=== PATIENT | male | born 1955 | race African-American/Black ===

== ENCOUNTER 2019-08-04 16:11 | Inpatient (IN) ==
[2019-08-04 17:17] LABS: Eosinophils % 0.3 % (0.00-10.9); Hematocrit 37.6 VOL% (42.0-52.0); Hemoglobin 13.2 GM/DL (14.0-18.0); Immature Granulocytes % 0.5 %; Immature Granulocytes Absolute 0.02 #; Lymphocytes # 0.5 10*3/uL (1.4-4.0); Lymphocytes % 11.6 % (21.2-54.2); Mean Corpuscular HGB Conc 35.1 GM/DL (32-36); Mean Corpuscular Volume 93.8 FL (87-102); Mean Platelet Volume 10.8 FL (9.6-12.0); Monocytes % 11.6 % (1.7-12.7); Platelet Count 73 T/CUMM (130-400); Red Blood Count 4.01 MC/CUMM (3.8-5.5); Red Cell Distribution Width 13.1 % (9.3-17.3); White Blood Count 3.9 T/CUMM (4-12)
[2019-08-04 17:37] LABS: Alanine Aminotransferase 150 U/L (16-61); Albumin 3.8 G/DL (3.4-5.0); Alkaline Phosphatase 77 U/L (45-117); Aspartate Amino Transferase 233 U/L (0-37); Blood Urea Nitrogen 7 MG/DL (7-18); Calcium 9.2 MG/DL (8.5-10.1); Estimated Glom Filtration Rate 79 ML/MIN; Glucose 133 MG/DL (74-106); Osmolality,Calculated 261.7 MOS/KG (273-304); Total Protein 9.2 G/DL (6.4-8.3)
[2019-08-04 17:58] LABS: Platelet Estimate Decreased; Polychromasia Slight
[2019-08-04] MEDS ORDERED: levETIRAcetam 500 MG/5 ML VIAL IV ONE (18:54)
[2019-08-04] MEDS ORDERED: ACETAMINOPHEN 325 MG TABLET PO PRN (19:32)
[2019-08-04] MEDS ORDERED: ONDANSETRON 4 MG/2 ML VIAL IV PRN (19:32)
[2019-08-04] MEDS ORDERED: DOCUSATE SODIUM 100 MG CAPSULE PO PRN (19:32)
[2019-08-04 20:50] LABS: Apearance,Urine CLEAR (Clear); Bacteria,Urine Occasional /HPF (Few); Bilirubin,Urine Negative (Negative); Blood, Urine Moderate mg/dL (Negative); Glucose,Urine (UA) Negative (Negative); Hyaline Casts,Urine 5 /LPF (0-3); Ketones,Urine 5 mg/dL (Negative); Mucus,Urine Occasional /LPF (Occasional); Nitrite,Urine Negative (Negative); Protein,Urine 30 MG/DL; RBC,Urine 9 /HPF (0-4); Urine Color Yellow (Yellow); Urine Specific Gravity 1.012 (1.001-1.035); Urine Urobilinogen < 2.0 EU/DL (0.2-1.0); WBC,Urine 1 /HPF (0-6)
[2019-08-04 20:54] LABS: Barbiturates Screen,Urine Negative (Negative); Benzodiazepines Screen,Urine Negative (Negative); Cannabinoid Screen,Urine Negative (Negative); Opiate Screen,Urine Negative (Negative); Phencyclidine Screen,Urine Negative (Negative)
[2019-08-04] MEDS ORDERED: ENOXAPARIN 40 MG/0.4 ML SYRINGE SUBCUT SCH (21:00)
[2019-08-04] MEDS ORDERED: POTASSIUM CHLORIDE 20 MEQ TABLET PO ONE (21:00)
[2019-08-04] MEDS: THIAMINE INJ 100 MG, FOLIC ACID INJ 1 MG, MULTIVITAMIN INJ 10 ML in SODIUM CHLORIDE 0.9... IV SCH (22:08)
[2019-08-05 05:17] LABS: Basophils % 0.9 % (0.0-0.8); Eosinophils % 0.7 % (0.00-10.9); Hematocrit 38.5 VOL% (42.0-52.0); Hemoglobin 13.7 GM/DL (14.0-18.0); Immature Granulocytes % 0.5 %; Immature Granulocytes Absolute 0.02 #; Lymphocytes # 0.8 10*3/uL (1.4-4.0); Lymphocytes % 18.1 % (21.2-54.2); Mean Corpuscular HGB Conc 35.6 GM/DL (32-36); Mean Platelet Volume 10.5 FL (9.6-12.0); Monocytes % 15.5 % (1.7-12.7); Neutrophils % 64.3 % (38.7-73.9); Platelet Count 69 T/CUMM (130-400); Red Blood Count 4.14 MC/CUMM (3.8-5.5); Red Cell Distribution Width 13.3 % (9.3-17.3); White Blood Count 4.3 T/CUMM (4-12)
[2019-08-05 05:42] LABS: Albumin 3.8 G/DL (3.4-5.0); Bilirubin,Total 1.4 MG/DL (0.2-1.0); Osmolality,Calculated 264.2 MOS/KG (273-304); Risk Ratio 2.06; Thyroid Stimulating Hormone 1.18 uIU/ml (0.358-3.74); Total Protein 9.2 G/DL (6.4-8.3); VLDL CHOLESTEROL 18.6 MG/DL
[2019-08-05 06:11] LABS: Anisocytosis Slight; Band Neutrophils 2 % (0-10); Lymphocytes 19 % (20-55); Macrocytosis Slight; Segmented Neutrophils 66 % (50-85); Target Cells 1+; Total Cells Counted 100
[2019-08-05 06:12] LABS: Platelet Estimate Decreased
[2019-08-05] MEDS: LACTULOSE 20 GM/30 ML UDCUP PO SCH (10:10)
[2019-08-05] MEDS: PANTOPRAZOLE 40 MG TABLET PO SCH (10:11)
[2019-08-05] MEDS: SODIUM CHLORIDE 0.9% 1,000 ML IV SCH (10:49)
[2019-08-05] MEDS: levETIRAcetam 500 MG TABLET PO SCH (20:44)
[2019-08-05] MEDS: THIAMINE INJ 100 MG, FOLIC ACID INJ 1 MG, MULTIVITAMIN INJ 10 ML in SODIUM CHLORIDE 0.9... IV SCH (20:44)
[2019-08-06] MEDS ORDERED: LORazepam 2 MG/1 ML VIAL IV ONE (04:00)
[2019-08-06 08:02] VITALS: BP 132/83
[2019-08-06] MEDS: SODIUM CHLORIDE 0.9% 1,000 ML IV SCH (08:06)
[2019-08-06] MEDS: levETIRAcetam 500 MG TABLET PO SCH (08:08)
[2019-08-06] MEDS: PANTOPRAZOLE 40 MG TABLET PO SCH (08:08)
[2019-08-06] MEDS: LACTULOSE 20 GM/30 ML UDCUP PO SCH (08:08)
[2019-08-06] MEDS ORDERED: METOPROLOL SUCCINATE XL 50 MG TABLET PO SCH (09:00)
== END 2019-08-06 10:00 | disposition home or self-care (01) | DRG 101 ==
LOC: EDUNIT# → EDBD → N.ED 16:11 → SUATTDRO 19:32 → N.EDINP 19:32 → N.4E 20:30
PROVIDERS: ADMIT Internal Medicine; ATTEND Emergency Medicine

== ENCOUNTER 2020-03-13 19:47 | Inpatient (IN) ==
[2020-03-13] MEDS ORDERED: SODIUM CHLORIDE 0.9% 1,000 ML IV STA (21:16)
[2020-03-13] MEDS ORDERED: THIAMINE 200 MG/2 ML VIAL IM STA (21:16)
[2020-03-13 21:22] LABS: Basophils # 0.1 10*3/uL (0.0-0.2); Basophils % 0.6 % (0.0-0.8); Eosinophils # 0.2 10*3/uL (0.0-0.87); Eosinophils % 1.9 % (0.00-10.9); Hematocrit 24.2 VOL% (42.0-52.0); Immature Granulocytes % 0.5 %; Immature Granulocytes Absolute 0.06 #; Lymphocytes # 1.4 10*3/uL (1.4-4.0); Lymphocytes % 12.8 % (21.2-54.2); Mean Corpuscular HGB Conc 33.1 GM/DL (32-36); Mean Corpuscular Volume 103.9 FL (87-102); Monocytes % 9.9 % (1.7-12.7); Neutrophils % 74.3 % (38.7-73.9); Platelet Count 197 T/CUMM (130-400); Red Blood Count 2.33 MC/CUMM (3.8-5.5); Red Cell Distribution Width 13.8 % (9.3-17.3); White Blood Count 11.1 T/CUMM (4-12)
[2020-03-13 21:30] LABS: INR 1.2; PT Patient Result 12.4 SECS (9.8-11.9)
[2020-03-13 21:37] LABS: Apearance,Urine CLEAR (Clear); Bilirubin,Urine Negative (Negative); Blood, Urine Negative (Negative); Glucose,Urine (UA) Negative (Negative); Hyaline Casts,Urine 11 /LPF (0-3); Ketones,Urine Negative (Negative); Nitrite,Urine Negative (Negative); Protein,Urine Negative; RBC,Urine 1 /HPF (0-4); Squamous Epithelial Cell,Urine Occasional /HPF (0-10); Urine Color Yellow (Yellow); Urine Urobilinogen < 2.0 EU/DL (0.2-1.0); WBC,Urine <1 /HPF (0-6)
[2020-03-13 21:39] LABS: Alanine Aminotransferase 49 U/L (16-61); Albumin 3.6 G/DL (3.4-5.0); Alkaline Phosphatase 93 U/L (45-117); Aspartate Amino Transferase 251 U/L (0-37); Blood Urea Nitrogen 31 MG/DL (7-18); Calcium 9.5 MG/DL (8.5-10.1); Estimated Glom Filtration Rate 48 ML/MIN; Glucose 105 MG/DL (74-106); Osmolality,Calculated 253.8 MOS/KG (273-304); Total Protein 9.2 G/DL (6.4-8.3); Troponin I < 0.015 NG/ML (0.00-0.045)
[2020-03-13 21:41] LABS: Barbiturates Screen,Urine Negative (Negative); Benzodiazepines Screen,Urine Negative (Negative); Cannabinoid Screen,Urine Negative (Negative); Opiate Screen,Urine Negative (Negative); Phencyclidine Screen,Urine Negative (Negative)
[2020-03-13 21:45] LABS: Free T4 (Free Thyroxine) 1.33 NG/DL (0.76-1.46); Thyroid Stimulating Hormone 1.91 uIU/ml (0.358-3.74)
[2020-03-14] MEDS ORDERED: PROMETHAZINE 25 MG/1 ML VIAL IM PRN (00:10)
[2020-03-14] MEDS ORDERED: ALBUTEROL 2.5 MG/3 ML NEB RESP TX PRN (00:10)
[2020-03-14] MEDS ORDERED: ONDANSETRON 4 MG/2 ML VIAL IV PRN (00:10)
[2020-03-14] MEDS ORDERED: ENOXAPARIN 40 MG/0.4 ML SYRINGE ONE (00:25)
[2020-03-14] MEDS ORDERED: THIAMINE INJ 100 MG, FOLIC ACID INJ 1 MG, MAGNESIUM SULF INJ 2 GM, MULTIVITAMIN INJ 10 ... IV ONE (00:30)
[2020-03-14] MEDS: PANTOPRAZOLE 40 MG VIAL IV SCH ×3 (00:42→20:45)
[2020-03-14] MEDS ORDERED: LORazepam 2 MG/1 ML VIAL ONE (00:55)
[2020-03-14] MEDS: LORazepam 2 MG/1 ML VIAL IV PRN ×2 (01:15→04:30)
[2020-03-14 04:38] LABS: Basophils % 0.5 % (0.0-0.8); Eosinophils # 0.2 10*3/uL (0.0-0.87); Hematocrit 21.1 VOL% (42.0-52.0); Hemoglobin 7.2 GM/DL (14.0-18.0); Immature Granulocytes % 0.6 %; Immature Granulocytes Absolute 0.05 #; Lymphocytes # 1.3 10*3/uL (1.4-4.0); Mean Corpuscular HGB Conc 34.1 GM/DL (32-36); Mean Corpuscular Volume 102.9 FL (87-102); Mean Platelet Volume 10.3 FL (9.6-12.0); Monocytes % 11.3 % (1.7-12.7); Neutrophils % 69.6 % (38.7-73.9); Platelet Count 145 T/CUMM (130-400); Red Blood Count 2.05 MC/CUMM (3.8-5.5); Red Cell Distribution Width 13.7 % (9.3-17.3)
[2020-03-14 04:56] LABS: Calcium 8.8 MG/DL (8.5-10.1); Osmolality,Calculated 258.2 MOS/KG (273-304)
[2020-03-14] MEDS ORDERED: GLUCAGON 1 MG VIAL IM PRN (07:23)
[2020-03-14] MEDS ORDERED: DEXTROSE 10% 250 ML BAG IV PRN (07:23)
[2020-03-14] MEDS ORDERED: chlordiazePOXIDE 25 MG CAPSULE PO ONE ×2 (07:56→08:00)
[2020-03-14] MEDS: ENOXAPARIN 40 MG/0.4 ML SYRINGE SUBCUT SCH (08:16)
[2020-03-14] MEDS ORDERED: SODIUM CHLORIDE 0.9% 1,000 ML IV SCH (08:30)
[2020-03-14 08:44] LABS: Basophils % 0.6 % (0.0-0.8); Eosinophils # 0.2 10*3/uL (0.0-0.87); Eosinophils % 3.3 % (0.00-10.9); Hematocrit 21.6 VOL% (42.0-52.0); Hemoglobin 7.1 GM/DL (14.0-18.0); Immature Granulocytes % 0.3 %; Immature Granulocytes Absolute 0.02 #; Lymphocytes # 1.3 10*3/uL (1.4-4.0); Mean Corpuscular HGB Conc 32.9 GM/DL (32-36); Mean Corpuscular Volume 103.8 FL (87-102); Mean Platelet Volume 9.9 FL (9.6-12.0); Monocytes % 10.6 % (1.7-12.7); Neutrophils % 65.2 % (38.7-73.9); Platelet Count 152 T/CUMM (130-400); Red Blood Count 2.08 MC/CUMM (3.8-5.5); Red Cell Distribution Width 13.7 % (9.3-17.3); White Blood Count 6.7 T/CUMM (4-12)
[2020-03-14] MEDS ORDERED: chlordiazePOXIDE 25 MG CAPSULE PO SCH (09:00)
[2020-03-14] MEDS: POTASSIUM CHLORIDE 20 MEQ TABLET PO PRN (10:10)
[2020-03-14] MEDS ORDERED: LORazepam 2 MG/1 ML VIAL IV PRN (10:45)
[2020-03-14] MEDS ORDERED: SODIUM CHLORIDE 0.9% 1,000 ML IV PRN (11:39)
[2020-03-14] MEDS: DEXTROSE 5% NACL 0.9% 1,000 ML IV SCH (13:13)
[2020-03-14] MEDS: POTASSIUM CHLORIDE RIDER 10 MEQ in PREMIX 1 EACH IV PRN ×2 (13:49→15:19)
[2020-03-14] MEDS: chlordiazePOXIDE 25 MG CAPSULE PO SCH ×2 (15:13→20:45)
[2020-03-14] MEDS: levETIRAcetam 500 MG TABLET PO SCH (20:45)
[2020-03-14 22:37] LABS: Hematocrit 31.4 VOL% (42.0-52.0); Hemoglobin 10.5 GM/DL (14.0-18.0)
[2020-03-15] MEDS: DEXTROSE 5% NACL 0.9% 1,000 ML IV SCH ×3 (00:50→17:56)
[2020-03-15] MEDS: NICOTINE 14 MG/24 HR PATCH TRANSDERM SCH (06:10)
[2020-03-15 06:31] LABS: Basophils % 0.6 % (0.0-0.8); Eosinophils # 0.3 10*3/uL (0.0-0.87); Hematocrit 31.7 VOL% (42.0-52.0); Hemoglobin 10.7 GM/DL (14.0-18.0); Immature Granulocytes % 0.6 %; Immature Granulocytes Absolute 0.04 #; Lymphocytes % 15.8 % (21.2-54.2); Mean Corpuscular HGB Conc 33.8 GM/DL (32-36); Mean Corpuscular Volume 101.6 FL (87-102); Mean Platelet Volume 10.3 FL (9.6-12.0); Monocytes % 10.3 % (1.7-12.7); Neutrophils % 67.7 % (38.7-73.9); Platelet Count 156 T/CUMM (130-400); Red Blood Count 3.12 MC/CUMM (3.8-5.5); White Blood Count 6.6 T/CUMM (4-12)
[2020-03-15 06:55] LABS: Calcium 8.5 MG/DL (8.5-10.1); Osmolality,Calculated 264.4 MOS/KG (273-304)
[2020-03-15 06:58] LABS: Albumin 2.7 G/DL (3.4-5.0); Bilirubin,Total 2.1 MG/DL (0.2-1.0); Calcium 8.6 MG/DL (8.5-10.1); Osmolality,Calculated 263.4 MOS/KG (273-304); Total Protein 7.9 G/DL (6.4-8.3)
[2020-03-15 07:06] LABS: Folate 12.3 NG/ML (5.4-24.0)
[2020-03-15] MEDS: ENOXAPARIN 40 MG/0.4 ML SYRINGE SUBCUT SCH (09:04)
[2020-03-15] MEDS: levETIRAcetam 500 MG TABLET PO SCH ×2 (09:05→21:36)
[2020-03-15] MEDS: chlordiazePOXIDE 25 MG CAPSULE PO SCH ×3 (09:06→21:36)
[2020-03-15] MEDS: PANTOPRAZOLE 40 MG VIAL IV SCH (09:07)
[2020-03-15] MEDS: POTASSIUM CHLORIDE 20 MEQ TABLET PO SCH ×4 (09:19→17:55)
[2020-03-15] MEDS: POTASSIUM CHLORIDE 20 MEQ TABLET PO PRN (09:19)
[2020-03-16] MEDS: DEXTROSE 5% NACL 0.9% 1,000 ML IV SCH ×2 (01:56→09:51)
[2020-03-16 06:08] LABS: Basophils % 0.5 % (0.0-0.8); Eosinophils # 0.4 10*3/uL (0.0-0.87); Hematocrit 32.3 VOL% (42.0-52.0); Hemoglobin 10.6 GM/DL (14.0-18.0); Immature Granulocytes % 1.1 %; Immature Granulocytes Absolute 0.09 #; Lymphocytes # 1.2 10*3/uL (1.4-4.0); Mean Corpuscular HGB Conc 32.8 GM/DL (32-36); Mean Corpuscular Volume 102.2 FL (87-102); Mean Platelet Volume 10.2 FL (9.6-12.0); Monocytes % 14.4 % (1.7-12.7); Platelet Count 183 T/CUMM (130-400); Red Blood Count 3.16 MC/CUMM (3.8-5.5); Red Cell Distribution Width 16.4 % (9.3-17.3); White Blood Count 8.6 T/CUMM (4-12)
[2020-03-16 06:32] LABS: Albumin 2.6 G/DL (3.4-5.0); Bilirubin,Total 1.2 MG/DL (0.2-1.0); Calcium 8.7 MG/DL (8.5-10.1); Osmolality,Calculated 276.5 MOS/KG (273-304); Total Protein 7.6 G/DL (6.4-8.3)
[2020-03-16] MEDS: hydrALAZINE 20 MG/1 ML VIAL IV PRN (06:32)
[2020-03-16] MEDS: ENOXAPARIN 40 MG/0.4 ML SYRINGE SUBCUT SCH (08:37)
[2020-03-16] MEDS: NICOTINE 14 MG/24 HR PATCH TRANSDERM SCH (08:37)
[2020-03-16] MEDS: chlordiazePOXIDE 25 MG CAPSULE PO SCH (08:38)
[2020-03-16] MEDS: levETIRAcetam 500 MG TABLET PO SCH ×2 (08:38→20:29)
[2020-03-16] MEDS: POTASSIUM CHLORIDE 20 MEQ TABLET PO PRN ×4 (08:38→20:29)
[2020-03-16] MEDS: PANTOPRAZOLE 40 MG TABLET PO SCH (08:39)
[2020-03-16] MEDS ORDERED: NIFEdipine 10 MG CAPSULE PO PRN (11:07)
[2020-03-16 17:11] LABS: Osmolality, Serum 265 mOsm/kg (275 - 295)
[2020-03-16 18:41] LABS: Osmolality, Urine 326 mOsm/kg (150 - 1150)
[2020-03-16] MEDS: chlordiazePOXIDE 25 MG CAPSULE PO PRN (23:34)
[2020-03-17 03:17] LABS: Calcium 9.3 MG/DL (8.5-10.1); Osmolality,Calculated 274.5 MOS/KG (273-304)
[2020-03-17] MEDS: POTASSIUM CHLORIDE 20 MEQ TABLET PO PRN ×2 (04:21→06:29)
[2020-03-17] MEDS: hydrALAZINE 20 MG/1 ML VIAL IV PRN (06:38)
[2020-03-17] MEDS: ENOXAPARIN 40 MG/0.4 ML SYRINGE SUBCUT SCH (08:12)
[2020-03-17] MEDS: PANTOPRAZOLE 40 MG TABLET PO SCH (08:12)
[2020-03-17] MEDS: levETIRAcetam 500 MG TABLET PO SCH ×2 (08:12→20:40)
[2020-03-17] MEDS: NICOTINE 14 MG/24 HR PATCH TRANSDERM SCH (08:12)
[2020-03-17] MEDS ORDERED: MAGNESIUM SULF RIDER 4 GM in PREMIX 1 EACH IV ONE (10:00)
[2020-03-18 03:39] LABS: Calcium 9.2 MG/DL (8.5-10.1); Osmolality,Calculated 276.4 MOS/KG (273-304)
[2020-03-18] MEDS ORDERED: MAGNESIUM SULF RIDER 4 GM in PREMIX 1 EACH IV PRN (07:07)
[2020-03-18 08:35] LABS: Basophils # 0.1 10*3/uL (0.0-0.2); Basophils % 0.9 % (0.0-0.8); Eosinophils # 0.4 10*3/uL (0.0-0.87); Eosinophils % 5.4 % (0.00-10.9); Hematocrit 32.5 VOL% (42.0-52.0); Hemoglobin 10.5 GM/DL (14.0-18.0); Immature Granulocytes Absolute 0.08 #; Lymphocytes # 0.9 10*3/uL (1.4-4.0); Lymphocytes % 10.6 % (21.2-54.2); Mean Corpuscular HGB Conc 32.3 GM/DL (32-36); Mean Corpuscular Volume 104.8 FL (87-102); Mean Platelet Volume 10.6 FL (9.6-12.0); Monocytes % 14.7 % (1.7-12.7); Neutrophils % 67.4 % (38.7-73.9); Platelet Count 197 T/CUMM (130-400); Red Cell Distribution Width 16.7 % (9.3-17.3); White Blood Count 8.1 T/CUMM (4-12)
[2020-03-18] MEDS: LACTATED RINGERS 1,000 ML IV SCH (08:40)
[2020-03-18] MEDS ORDERED: LIDOCAINE 2% 5 ML VIAL ONE (09:00)
[2020-03-18] MEDS ORDERED: propofoL 200 MG/20 ML VIAL IV ONE (09:00)
[2020-03-18] MEDS: NICOTINE 14 MG/24 HR PATCH TRANSDERM SCH (11:02)
[2020-03-18] MEDS: POLYETHYLENE GLYCOL POWDER 17 GM PACK PO SCH (11:02)
[2020-03-18] MEDS: levETIRAcetam 500 MG TABLET PO SCH ×2 (11:03→20:57)
[2020-03-18] MEDS: PANTOPRAZOLE 40 MG TABLET PO SCH (11:03)
[2020-03-18] MEDS: SODIUM CHLORIDE 0.9% 1,000 ML IV SCH ×2 (11:08→20:56)
[2020-03-18] MEDS: MAGNESIUM SULF RIDER 2 GM in PREMIX 1 EACH IV PRN (14:05)
[2020-03-19] MEDS: SODIUM CHLORIDE 0.9% 1,000 ML IV SCH ×4 (05:50→21:02)
[2020-03-19 06:46] LABS: Calcium 8.9 MG/DL (8.5-10.1); Osmolality,Calculated 275.4 MOS/KG (273-304)
[2020-03-19] MEDS: LACTATED RINGERS 1,000 ML IV SCH (07:21)
[2020-03-19] MEDS: PANTOPRAZOLE 40 MG TABLET PO SCH (09:07)
[2020-03-19] MEDS: levETIRAcetam 500 MG TABLET PO SCH ×2 (09:07→20:53)
[2020-03-19] MEDS: NICOTINE 14 MG/24 HR PATCH TRANSDERM SCH (09:07)
[2020-03-19] MEDS: MAGNESIUM SULF RIDER 2 GM in PREMIX 1 EACH IV PRN (09:07)
[2020-03-19] MEDS: POLYETHYLENE GLYCOL POWDER 17 GM PACK PO SCH (09:08)
[2020-03-19] MEDS: chlordiazePOXIDE 25 MG CAPSULE PO PRN ×2 (12:09→22:23)
[2020-03-19] MEDS: LORazepam 2 MG/1 ML VIAL IV PRN ×3 (15:28→23:46)
[2020-03-20] MEDS: SODIUM CHLORIDE 0.9% 1,000 ML IV SCH ×4 (02:06→20:21)
[2020-03-20] MEDS: LORazepam 2 MG/1 ML VIAL IV PRN ×2 (05:13→17:30)
[2020-03-20] MEDS: LACTATED RINGERS 1,000 ML IV SCH (07:29)
[2020-03-20] MEDS: levETIRAcetam 500 MG TABLET PO SCH ×2 (09:56→20:16)
[2020-03-20] MEDS: NICOTINE 14 MG/24 HR PATCH TRANSDERM SCH (09:56)
[2020-03-20] MEDS: POLYETHYLENE GLYCOL POWDER 17 GM PACK PO SCH (09:56)
[2020-03-20] MEDS: PANTOPRAZOLE 40 MG TABLET PO SCH (09:56)
[2020-03-20] MEDS: THIAMINE 100 MG TABLET PO SCH (09:56)
[2020-03-20] MEDS: MULTIVITAMIN (CENTRUM) TABLET PO SCH (09:56)
[2020-03-20] MEDS: chlordiazePOXIDE 25 MG CAPSULE PO SCH (20:16)
[2020-03-21] MEDS: POLYETHYLENE GLYCOL POWDER 17 GM PACK PO SCH (09:24)
[2020-03-21] MEDS: NICOTINE 14 MG/24 HR PATCH TRANSDERM SCH (09:25)
[2020-03-21] MEDS: THIAMINE 100 MG TABLET PO SCH (09:25)
[2020-03-21] MEDS: MULTIVITAMIN (CENTRUM) TABLET PO SCH (09:25)
[2020-03-21] MEDS: PANTOPRAZOLE 40 MG TABLET PO SCH (09:25)
[2020-03-21] MEDS: levETIRAcetam 500 MG TABLET PO SCH ×2 (09:25→21:02)
[2020-03-21] MEDS: chlordiazePOXIDE 25 MG CAPSULE PO SCH ×2 (09:25→21:02)
[2020-03-21] MEDS: LACTATED RINGERS 1,000 ML IV SCH (09:29)
[2020-03-21] MEDS: MAGNESIUM SULF RIDER 2 GM in PREMIX 1 EACH IV PRN (09:30)
[2020-03-21] MEDS: SODIUM CHLORIDE 0.9% 1,000 ML IV SCH (09:35)
[2020-03-22] MEDS: SODIUM CHLORIDE 0.9% 1,000 ML IV SCH ×3 (03:40→09:17)
[2020-03-22 07:00] LABS: Basophils # 0.1 10*3/uL (0.0-0.2); Basophils % 0.8 % (0.0-0.8); Eosinophils # 0.3 10*3/uL (0.0-0.87); Eosinophils % 4.4 % (0.00-10.9); Hematocrit 29.2 VOL% (42.0-52.0); Hemoglobin 9.7 GM/DL (14.0-18.0); Immature Granulocytes % 0.4 %; Immature Granulocytes Absolute 0.03 #; Lymphocytes # 1.5 10*3/uL (1.4-4.0); Lymphocytes % 19.4 % (21.2-54.2); Mean Corpuscular HGB Conc 33.2 GM/DL (32-36); Mean Corpuscular Volume 102.8 FL (87-102); Mean Platelet Volume 10.6 FL (9.6-12.0); Monocytes % 11.4 % (1.7-12.7); Neutrophils % 63.6 % (38.7-73.9); Platelet Count 193 T/CUMM (130-400); Red Blood Count 2.84 MC/CUMM (3.8-5.5); Red Cell Distribution Width 15.4 % (9.3-17.3); White Blood Count 7.7 T/CUMM (4-12)
[2020-03-22 07:29] LABS: Calcium 8.8 MG/DL (8.5-10.1); Osmolality,Calculated 278.1 MOS/KG (273-304)
[2020-03-22] MEDS: PANTOPRAZOLE 40 MG TABLET PO SCH (08:26)
[2020-03-22] MEDS: MULTIVITAMIN (CENTRUM) TABLET PO SCH (08:26)
[2020-03-22] MEDS: levETIRAcetam 500 MG TABLET PO SCH ×2 (08:27→20:56)
[2020-03-22] MEDS: NICOTINE 14 MG/24 HR PATCH TRANSDERM SCH (08:27)
[2020-03-22] MEDS: THIAMINE 100 MG TABLET PO SCH (08:27)
[2020-03-22] MEDS: chlordiazePOXIDE 25 MG CAPSULE PO SCH ×3 (08:27→20:56)
[2020-03-22] MEDS: POLYETHYLENE GLYCOL POWDER 17 GM PACK PO SCH (08:27)
[2020-03-22] MEDS: POTASSIUM CHLORIDE RIDER 10 MEQ in PREMIX 1 EACH IV PRN ×4 (08:28→18:25)
[2020-03-22 08:45] LABS: Band Neutrophils 2 % (0-10); Eosinophils 7 % (0-10); Hypochromasia Slight; Lymphocytes 12 % (20-55); Macrocytosis Slight; Platelet Estimate Adequate; Segmented Neutrophils 72 % (50-85); Total Cells Counted 100
[2020-03-22] MEDS: LACTATED RINGERS 1,000 ML IV SCH (09:16)
[2020-03-23] MEDS: THIAMINE 100 MG TABLET PO SCH (08:39)
[2020-03-23] MEDS: chlordiazePOXIDE 25 MG CAPSULE PO SCH ×3 (08:39→21:24)
[2020-03-23] MEDS: NICOTINE 14 MG/24 HR PATCH TRANSDERM SCH (08:39)
[2020-03-23] MEDS: MULTIVITAMIN (CENTRUM) TABLET PO SCH (08:39)
[2020-03-23] MEDS: POLYETHYLENE GLYCOL POWDER 17 GM PACK PO SCH (08:39)
[2020-03-23] MEDS: levETIRAcetam 500 MG TABLET PO SCH ×2 (08:40→21:24)
[2020-03-23] MEDS: PANTOPRAZOLE 40 MG TABLET PO SCH (08:48)
[2020-03-24] MEDS: NICOTINE 14 MG/24 HR PATCH TRANSDERM SCH (08:56)
[2020-03-24] MEDS: levETIRAcetam 500 MG TABLET PO SCH (08:56)
[2020-03-24] MEDS: POLYETHYLENE GLYCOL POWDER 17 GM PACK PO SCH (08:56)
[2020-03-24] MEDS: PANTOPRAZOLE 40 MG TABLET PO SCH (08:56)
[2020-03-24] MEDS: THIAMINE 100 MG TABLET PO SCH (08:56)
[2020-03-24] MEDS: MULTIVITAMIN (CENTRUM) TABLET PO SCH (08:56)
[2020-03-24] MEDS: chlordiazePOXIDE 25 MG CAPSULE PO SCH (08:56)
[2020-03-24 12:05] VITALS: BP 156/91
== END 2020-03-24 14:05 | disposition home health service (06) | DRG 897 ==
LOC: N.ED 19:47 → N.EDINP 23:15 → SUATTDRO 23:15 → N.ICU 03-14 09:20 → N.4E 03-17 11:55
PROVIDERS: ADMIT Internal Medicine; ATTEND Internal Medicine

== ENCOUNTER 2022-05-07 14:40 | Inpatient (IN) ==
[2022-05-07] MEDS ORDERED: SODIUM CHLORIDE 0.9% 2,000 ML IV STA (15:56)
[2022-05-07] MEDS ORDERED: ONDANSETRON 4 MG/2 ML VIAL IV STA (16:00)
[2022-05-07 16:02] LABS: Basophils # 0.1 10*3/uL (0.0-0.2); Basophils % 0.4 % (0.0-0.8); Eosinophils # 0.4 10*3/uL (0.0-0.87); Hematocrit 35.9 VOL% (42.0-52.0); Hemoglobin 11.8 GM/DL (14.0-18.0); Immature Granulocytes Absolute 0.18 #; Lymphocytes # 2.7 10*3/uL (1.4-4.0); Lymphocytes % 14.6 % (21.2-54.2); Mean Corpuscular HGB Conc 32.9 GM/DL (32-36); Mean Corpuscular Volume 91.8 FL (87-102); Mean Platelet Volume 12.8 FL (9.6-12.0); Monocytes # 2.1 10*3/uL (0.11-0.8); Monocytes % 11.3 % (1.7-12.7); Neutrophils % 70.7 % (38.7-73.9); Platelet Count 169 T/CUMM (130-400); Red Blood Count 3.91 MC/CUMM (3.8-5.5); Red Cell Distribution Width 23.1 % (9.3-17.3); White Blood Count 18.4 T/CUMM (4-12)
[2022-05-07 17:20] LABS: Albumin 1.4 G/DL (3.4-5.0); Bilirubin,Total 2.6 MG/DL (0.20-1.00); Calcium 10.3 MG/DL (8.5-10.1); Osmolality,Calculated 271.1 MOS/KG (273-304); Total Protein 7.6 G/DL (6.4-8.2)
[2022-05-07] MEDS ORDERED: DEXTROSE 50% 25 GM/50 ML VIAL IV STA (17:43)
[2022-05-07] MEDS ORDERED: ALBUTEROL 1.25 MG/3 ML NEB RESP TX STA (17:43)
[2022-05-07] MEDS ORDERED: SODIUM POLYSTYRENE SULFATE 15 GM/60 ML BOTTLE PO STA (17:43)
[2022-05-07] MEDS ORDERED: INSULIN REGULAR 100 UNIT/ML IV ONE (17:43)
[2022-05-07] MEDS ORDERED: CALCIUM GLUCONATE RIDER 1,000 MG/50 ML PREMIX IV ONE (17:43)
[2022-05-07] MEDS ORDERED: DEXTROSE 50% 25 GM/50 ML SYRINGE IV STA (17:46)
[2022-05-07] MEDS ORDERED: GLUCAGON 1 MG VIAL IM PRN (20:22)
[2022-05-07] MEDS ORDERED: ONDANSETRON 4 MG/2 ML VIAL IV PRN (20:22)
[2022-05-07] MEDS ORDERED: ACETAMINOPHEN 325 MG TABLET PO PRN (20:22)
[2022-05-07] MEDS ORDERED: MORPHINE 2 MG/1 ML SYRINGE IV PRN (20:22)
[2022-05-07] MEDS ORDERED: NICOTINE 21 MG/24 HR PATCH TRANSDERM PRN (20:29)
[2022-05-07] MEDS ORDERED: DEXTROSE 10% 250 ML BAG IV PRN (21:23)
[2022-05-07] MEDS: SODIUM CHLORIDE 0.9% 1,000 ML IV SCH (21:45)
[2022-05-07 21:52] LABS: Calcium Oxalate Crystals,Urine Occasional /HPF (Few); Hyaline Casts,Urine 24 /LPF (0-3); Mucus,Urine Occasional /LPF (Occasional); RBC,Urine 9 /HPF (0-4); Squamous Epithelial Cell,Urine Occasional /HPF (0-10)
[2022-05-07 22:05] LABS: Bilirubin,Urine Small mg/dL (Negative); Blood, Urine Negative (Negative); Glucose,Urine (UA) Negative (Negative); Ketones,Urine Negative (Negative); Nitrite,Urine Negative (Negative); Protein,Urine 30 mg/dL (Negative); Urine Appearance Clear (Clear); Urine Color Yellow (Yellow); Urine Specific Gravity 1.015 (1.001-1.035); Urine pH 5.5 (4.5-8.0)
[2022-05-08 04:47] LABS: Basophils # 0.1 10*3/uL (0.0-0.2); Basophils % 0.4 % (0.0-0.8); Eosinophils # 0.2 10*3/uL (0.0-0.87); Eosinophils % 1.1 % (0.00-10.9); Hematocrit 33.1 VOL% (42.0-52.0); Hemoglobin 11.2 GM/DL (14.0-18.0); Immature Granulocytes % 1.3 %; Immature Granulocytes Absolute 0.27 #; Lymphocytes # 2.8 10*3/uL (1.4-4.0); Lymphocytes % 13.6 % (21.2-54.2); Mean Corpuscular HGB Conc 33.8 GM/DL (32-36); Mean Corpuscular Volume 90.9 FL (87-102); Mean Platelet Volume 11.3 FL (9.6-12.0); Monocytes # 2.5 10*3/uL (0.11-0.8); Monocytes % 12.2 % (1.7-12.7); Neutrophils % 71.4 % (38.7-73.9); Platelet Count 146 T/CUMM (130-400); Red Blood Count 3.64 MC/CUMM (3.8-5.5); Red Cell Distribution Width 22.5 % (9.3-17.3); White Blood Count 20.3 T/CUMM (4-12)
[2022-05-08 05:14] LABS: Burr Cells Few; Eosinophils 2 % (0-10); Lymphocytes 10 % (20-55); Polychromasia Slight; Total Cells Counted 100
[2022-05-08 05:15] LABS: Target Cells Few
[2022-05-08 05:16] LABS: Anisocytosis 1+; Macrocytosis 1+
[2022-05-08] MEDS: SODIUM CHLORIDE 0.9% 1,000 ML IV SCH (05:17)
[2022-05-08 06:40] LABS: Alanine Aminotransferase 70 U/L (16-61); Albumin 1.5 G/DL (3.4-5.0); Alkaline Phosphatase 156 U/L (45-117); Aspartate Amino Transferase 163 U/L (0-37); Blood Urea Nitrogen 22 MG/DL (7-18); Calcium 11.4 MG/DL (8.5-10.1); Carbon Dioxide 20 MMOL/L (21-32); Chloride 107 MMOL/L (98-107); Cholesterol < 50 MG/DL (50-200); Glucose 57 MG/DL (74-106); HDL Cholesterol 10 MG/DL (40-60); Osmolality,Calculated 264.5 MOS/KG (273-304); Potassium 4.6 MMOL/L (3.5-5.1); Sodium 132 MMOL/L (136-145); Total Protein 7.5 G/DL (6.4-8.2); Triglycerides 57 MG/DL (2-150); VLDL Cholesterol 11.4 MG/DL
[2022-05-08] MEDS: ALBUTEROL/IPRATROPIUM 3 ML NEB RESP TX SCH ×3 (07:15→13:24)
[2022-05-08 08:04] LABS: INR 1.8; PT Patient Result 18.9 SECS (10.1-12.1)
[2022-05-08] MEDS ORDERED: LACTATED RINGERS 1,000 ML IV SCH (08:30)
[2022-05-08] MEDS ORDERED: METOPROLOL SUCCINATE XL 50 MG TABLET PO SCH (09:00)
[2022-05-08] MEDS ORDERED: PANTOPRAZOLE 40 MG TABLET PO SCH (09:00)
[2022-05-08] MEDS ORDERED: MAGNESIUM OXIDE 400 MG TABLET PO SCH ×2 (09:00→10:35)
[2022-05-08 13:58] VITALS: BP 108/71
== END 2022-05-08 13:55 | disposition left against medical advice (07) | DRG 187 ==
LOC: N.ED 14:40 → N.TELEN 20:22
PROVIDERS: ADMIT Internal Medicine; ATTEND Internal Medicine